=== PATIENT | male | born 1930 | race Caucasian/White ===

== ENCOUNTER → 2016-07-17 | Outpatient (CLI) | payer MEDICARE, OTHER ==
[2016-07-17 10:17] LABS: CHLORIDE,CL 97 mmol/L (98-110); SODIUM,NA 141 mmol/L (136-146)
--- NOTE | 2016-07-17 10:32 | CR ---
EXAMINATION: Two-view chest (PA and Lateral views). HISTORY: Shortness of breath. FINDINGS: The trachea is midline. Heart is borderline in size. The cardiomediastinal silhouette is stable. Sma ll bilateral pleural effusions are noted, right greater than left. No pneumothorax. Osseous structures appear unremarkable. IMPRESSION: Small bilateral pleural effusions, right greater than left.
--- NOTE | 2016-07-17 12:37 | US ---
EXAMINATION: Ultrasound guided right thoracentesis. HISTORY: Right pleural effusion. Technique/findings: The procedure, benefits and risks were discussed with the patient. Following w kenyten informed consent was obtained from the patient, under ultrasound guidance and utilizing 1% li docaine as local anesthesia the right pleural effusion was accessed using a 5 Vietnamese one-step needle . Following access the catheter was placed into the effusion, 1000 cc of pleural effusion was drain ed. US images demonstrate near complete resolution of the pleural effusion. The patient tolerated t he procedure well. Post thoracentesis chest radiograph demonstrates a trace right pleural effusion. No pneumothorax. Sm all persistent left pleural effusion is noted. IMPRESSION: Successful ultrasound-guided right thoracentesis. Fluid was tea colored.
== END | disposition home or self-care (01) ==
LOC: MW.CHIM 09:12
PROVIDERS: ATTEND Internal Medicine
DX: R06.02 Shortness of breath (principal); J90 Pleural effusion, not elsewhere classified; I48.91 Unspecified atrial fibrillation; I11.0 Hypertensive heart disease with heart failure; I50.9 Heart failure, unspecified
CPT/HCPCS: 32555; 36415; 71010; 71010-26; 71020; 71020-26; 80053; 83880; 85025; 88104; 89050; 93005; 99215

== ENCOUNTER → 2016-09-05 | Outpatient (CLI) | payer MEDICARE, OTHER ==
[2016-09-05 13:39] LABS: CHLORIDE,CL 98 mmol/L (98-110); SODIUM,NA 141 mmol/L (136-146)
--- NOTE | 2016-09-05 14:10 | CR ---
EXAMINATION: Two-view chest (PA and Lateral views). HISTORY: Cough. FINDINGS: The trachea is midline. The cardiomediastinal silhouette is stable. There is bibasilar scarring vers us chronic pleural effusions noted bilaterally. No pneumothorax. No definite focal infiltrate. Osseous structures appear unremarkable. IMPRESSION: 1. Chronic pleural scarring within the lung bases versus chronic small bilateral pleural effusions.
== END ==
LOC: MW.CHIM 12:32
PROVIDERS: ATTEND Internal Medicine
DX: I11.0 Hypertensive heart disease with heart failure (principal); I50.9 Heart failure, unspecified; J90 Pleural effusion, not elsewhere classified; R05 Cough; I25.10 Atherosclerotic heart disease of native coronary artery without angina pectoris; I51.9 Heart disease, unspecified; I48.2 Chronic atrial fibrillation
CPT/HCPCS: 36415; 71020; 80048; 83880; 85025; G0463

== ENCOUNTER 2016-09-27 10:03 | Emergency (ER) | payer MEDICARE, OTHER ==
[2016-09-27] MEDS ORDERED: Sodium Chloride 0.9% 2.5 ML Syringe FLUSH PRN (10:20)
[2016-09-27] MEDS ORDERED: Sodium Chloride 0.9% 10 ML Syringe FLUSH PRN (10:20)
--- NOTE | 2016-09-27 10:39 | EDM.PDOC ---
ED HISTORY OF PRESENT ILLNESS - General Chief Complaint: Respiratory Problem Stated Complaint: OXYGEN NEEDED Time Seen by Provider: 09/27/16 10:14 Source of Information: Reports: Patient, Family History Limitations: Reports: No limitations - History of Present Illness INITIAL COMMENTS - FREE TEXT/NARRATIVE: HISTORY AND PHYSICAL: [An 85-year-old man presents with shortness of breath for the last 3 days] History of Present Illness: [3 days ago experienced shortness of breath he does have oxygen on at home and has been running 100% denies any trauma or illness However states he has had increased mucous production] Review of Systems: As per history of present illness and below otherwise all systems reviewed and negative. Past medical history: As per history of present illness and as reviewed below otherwise noncontributory. Surgical history: As per history of present illness and as reviewed below otherwise noncontributory. Social history: No reported history of drug or alcohol abuse. Family history: As per history of present illness and as reviewed below otherwise noncontributory. Physical exam: Alert and oriented gentleman answering questions appropriately, is at bedside. HEENT: Atraumatic, normocehpalic, pupils reactive, negative for conjunctival pallor or scleral icterus, mucous membranes moist, throat clear, neck supple, nontender, trachea midline. Lungs: Clear to auscultation, breath sounds equal bilaterally, chest non tender. Breath sounds are diminished on the right. Heart: S1S2, regular, negative for clicks, rubs, or JVD. Abdomen: Soft, nondistended, mild tenderness with palpation to the lower right rib cage splenmegaly. Negative for costovertebral tenderness. Pelvis: Stable nontender. Genitourinary: Deferred. Rectal: Deferred Extremities: Atraumatic, negative for cords or calf pain. Neurovascular unremarkable. Neuro: Awake, alert, oriented. Cranial nerves II through XII unremarkable. Cerebellum unremarkable. Motor and sensory unremarkable throughout. Exam nonfocal. Discussed case with Dr. Ruvalcaba who is in agreement to recommend a course of action should patient worsen in symptoms he'll need to be reevaluated with possible removal of the fluid Diagnostics: [ CBC CMP CXR EKG troponin blood cultures x2 UA and culture] Therapeutics: [O2/B. albuterol RT treatment Kayexalate 15 mg po] Impression: [] Right Pleural effusion moderate sized Hyperkalemia Plan: [The patient was sent home See Dr. Frederick next week If symptoms worsen return to the emergency room for further treatment] Definitive disposition and diagnosis as appropriate pending reevaluation and review of above. Timing/Duration: Reports: Day(s): (3) Severity: moderate Location, General: Reports: chest Quality: Reports: Same as previous episode (As per) - Related Data Allergies/ADRs: Allergies Allergy/AdvReac Type Severity Reaction Status Date / Time aspirin Allergy Cannot Verified 09/27/16 10:12 Remember Dairy Products Allergy Other Verified 09/27/16 10:12 iodine Allergy Cannot Verified 09/27/16 10:12 Remember propoxyphene HCl Allergy Other Verified 09/27/16 10:12 [From [place]] wheat Allergy Other Verified 09/27/16 10:12 Home Meds: Home Meds Nitroglycerin [Nitrostat] 0.4 mg SL ASDIRECTED PRN 11/17/15 [History] Losartan [Cozaar] 50 mg PO DAILY #30 tablet 06/10/16 [Rx] Metoprolol Tartrate [Lopressor] 75 mg PO BID #30 tablet 06/10/16 [Rx] Amoxicillin [IMW: Amoxicillin] 500 mg PO .THREE TIMES DAILY #30 bottle 09/27/16 [Rx] Past Medical History HEENT History: Reports: Hard of hearing, Impaired vision Cardiovascular History: Reports: Afib, Hypertension, NE Respiratory History: Reports: COPD Gastrointestinal History: Reports: Diverticulosis Genitourinary History: Reports: None Musculoskeletal History: Reports: Back pain, chronic Neurological History: Reports: None Psychiatric History: Reports: None Endocrine/Metabolic History: Reports: None Hematologic History: Reports: None Oncologic (Cancer) History: Reports: Other (see below) Other Oncologic History: skin Dermatologic History: Reports: None - Infectious Disease History Infectious Disease History: Reports: Rheumatic Fever - Past Surgical History HEENT Surgical History: Reports: None Cardiovascular Surgical History: Reports: None GI Surgical History: Reports: Colonoscopy Neurological Surgical History: Reports: Other (see below) Other Neurological Surgeries/Procedures: Surgery in 2003 to repair broken neck - History Comment History Comment: Rheumatic fever Social & Family History - Family History Family Medical History: Noncontributory HEENT: Reports: Other (see below) Other HEENT Family History: "sinus problems" Cardiac: Reports: NE Respiratory: Reports: Other (see below) Other Respiratory Family Hisory: emphysema GI: Reports: Other (see below) Other GI Family History: Dad had "stomach troubles" OBGYN: Reports: Neurological: Reports: CVA Oncologic: Reports: Skin - Tobacco Use Smoking Status *Q: Never Smoker Second Hand Smoke Exposure: No - Caffeine Use Caffeine Use: Reports: None - Recreational Drug Use Recreational Drug Use: No - Living Situation & Occupation Living situation: Reports: Occupation: employed ([employer]) ED ROS GENERAL - Review of Systems Review Of Systems: ROS reveals no pertinent complaints other than HPI. ED EXAM, GENERAL - Physical Exam Exam: See Below (see dictation) EKG INTERPRETATION Rhythm: a-fib Rate (beats/min): 89 Course - Vital Signs Last Recorded V/S: Last Vital Signs Temp 36.7 C 09/27/16 10:14 Pulse 93 09/27/16 13:00 Resp 16 09/27/16 13:00 BP 120/59 L 09/27/16 13:00 Pulse Ox 96 09/27/16 13:00 - Orders/Labs/Meds Orders: Active Orders 24 hr Category Date Time Status Cardiac Monitoring [RC] . DIRECTED Care 09/27/16 10:20 Active EKG Documentation Completion [RC] STAT Care 09/27/16 10:20 Active Oxygen Therapy, ED [RC] ASDIRECTED Care 09/27/16 10:20 Active RT Aerosol Therapy [RC] ASDIRECTED Care 09/27/16 10:40 Active Chest 2V [CR] Stat Exams 09/27/16 10:21 Taken CULTURE BLOOD [BC] Stat Lab 09/27/16 10:52 Results CULTURE BLOOD [BC] Stat Lab 09/27/16 11:12 Results Sodium Chloride 0.9% [Saline Flush] Med 09/27/16 10:20 Active 10 ml FLUSH ASDIRECTED PRN Sodium Chloride 0.9% [Saline Flush] Med 09/27/16 10:20 Active 2.5 ml FLUSH ASDIRECTED PRN Blood Culture x2 Reflex Set [OM.PC] Stat Oth 09/27/16 10:21 Ordered Saline Lock Insert [OM.PC] Stat Oth 09/27/16 10:20 Ordered Medication Orders Sodium Chloride (Saline Flush) 10 ml FLUSH ASDIRECTED PRN PRN Reason: Keep Vein Open Last Admin: 09/27/16 10:55 Dose: 10 ml Sodium Chloride (Saline Flush) 2.5 ml FLUSH ASDIRECTED PRN PRN Reason: Keep Vein Open Last Admin: 09/27/16 10:55 Dose: 2.5 ml Labs: Laboratory Tests 09/27/16 09/27/16 09/27/16 Range/Units 10:37 10:37 10:37 WBC 11.90 H (4.0-11.0) K/uL RBC 4.30 L (4.50-5.90) M/uL Hgb 13.2 (13.0-17.0) g/dL Hct 41.9 (38.0-50.0) % MCV 97.4 (80.0-98.0) fL MCH 30.7 (27.0-32.0) pg MCHC 31.5 (31.0-37.0) g/dL RDW Std Deviation 53.1 (28.0-62.0) fl RDW Coeff of Leandro 15 (11.0-15.0) % Plt Count 193 (150-400) K/uL MPV 12.50 H (7.40-12.00) fL Neut % (Auto) 85.3 H (48.0-80.0) % Lymph % (Auto) 4.5 L (16.0-40.0) % [place] % (Auto) 9.7 (0.0-15.0) % Eos % (Auto) 0.2 (0.0-7.0) % Baso % (Auto) 0.3 (0.0-1.5) % Neut # (Auto) 10.2 H (1.4-5.7) K/uL Lymph # (Auto) 0.5 L (0.6-2.4) K/uL [place] # (Auto) 1.2 H (0.0-0.8) K/uL Eos # (Auto) 0.0 (0.0-0.7) K/uL Baso # (Auto) 0.0 (0.0-0.1) K/uL Nucleated RBC % 0.0 /100WBC Nucleated RBCs # 0 K/uL Lactate (0.20-2.00) mmol/L Sodium 140 (136-146) mmol/L Potassium 5.3 H (3.5-5.1) mmol/L Chloride 100 (98-110) mmol/L Carbon Dioxide 31 (21-31) mmol/L BUN 16 (6.0-23.0) mg/dL Creatinine 0.9 (0.6-1.5) mg/dL Est Cr Clr Drug Dosing 50.96 mL/min Estimated GFR (MDRD) > 60.0 ml/min Glucose 123 H (60-110) mg/dL Calcium 9.1 (8.8-10.8) mg/dL Total Bilirubin 1.3 (0.1-1.5) mg/dL AST 14 (5-40) IU/L ALT 11 (8-54) IU/L Alkaline Phosphatase 95 (40-150) Troponin I < 0.10 (0.0-0.29) NG/ML Total Protein 7.3 (6.0-8.0) g/dL Albumin 3.6 (3.4-4.8) g/dL Globulin 3.7 H (2.0-3.5) g/dL Albumin/Globulin Ratio 1.0 L (1.3-2.8) Urine Color Urine Appearance Urine pH (5.0-8.0) Ur Specific [place] (1.001-1.035) Urine Protein (NEGATIVE) mg/dL Urine Glucose (UA) (NEGATIVE) mg/dL Urine Ketones (NEGATIVE) mg/dL Urine Occult Blood (NEGATIVE) Urine Nitrite (NEGATIVE) Urine Bilirubin (NEGATIVE) Urine Urobilinogen (<2.0) EU/dL Ur Leukocyte Esterase (NEGATIVE) Urine RBC (0-2/HPF) Urine WBC (0-5/HPF) Ur Epithelial Cells (NONE-FEW) Amorphous Sediment (NEGATIVE) Urine Bacteria (NEGATIVE) Urine Mucus (NONE-MOD) 09/27/16 09/27/16 Range/Units 12:00 12:50 WBC (4.0-11.0) K/uL RBC (4.50-5.90) M/uL Hgb (13.0-17.0) g/dL Hct (38.0-50.0) % MCV (80.0-98.0) fL MCH (27.0-32.0) pg MCHC (31.0-37.0) g/dL RDW Std Deviation (28.0-62.0) fl RDW Coeff of Leandro (11.0-15.0) % Plt Count (150-400) K/uL MPV (7.40-12.00) fL Neut % (Auto) (48.0-80.0) % Lymph % (Auto) (16.0-40.0) % [place] % (Auto) (0.0-15.0) % Eos % (Auto) (0.0-7.0) % Baso % (Auto) (0.0-1.5) % Neut # (Auto) (1.4-5.7) K/uL Lymph # (Auto) (0.6-2.4) K/uL [place] # (Auto) (0.0-0.8) K/uL Eos # (Auto) (0.0-0.7) K/uL Baso # (Auto) (0.0-0.1) K/uL Nucleated RBC % /100WBC Nucleated RBCs # K/uL Lactate 2.0 (0.20-2.00) mmol/L Sodium (136-146) mmol/L Potassium (3.5-5.1) mmol/L Chloride (98-110) mmol/L Carbon Dioxide (21-31) mmol/L BUN (6.0-23.0) mg/dL Creatinine (0.6-1.5) mg/dL Est Cr Clr Drug Dosing mL/min Estimated GFR (MDRD) ml/min Glucose (60-110) mg/dL Calcium (8.8-10.8) mg/dL Total Bilirubin (0.1-1.5) mg/dL AST (5-40) IU/L ALT (8-54) IU/L Alkaline Phosphatase (40-150) Troponin I (0.0-0.29) NG/ML Total Protein (6.0-8.0) g/dL Albumin (3.4-4.8) g/dL Globulin (2.0-3.5) g/dL Albumin/Globulin Ratio (1.3-2.8) Urine Color DARK YELLOW Urine Appearance SLT CLOUDY Urine pH 5.5 (5.0-8.0) Ur Specific [place] >= 1.030 (1.001-1.035) Urine Protein 30 (NEGATIVE) mg/dL Urine Glucose (UA) NEGATIVE (NEGATIVE) mg/dL Urine Ketones NEGATIVE (NEGATIVE) mg/dL Urine Occult Blood NEGATIVE (NEGATIVE) Urine Nitrite NEGATIVE (NEGATIVE) Urine Bilirubin SMALL H (NEGATIVE) Urine Urobilinogen 0.2 (<2.0) EU/dL Ur Leukocyte Esterase NEGATIVE (NEGATIVE) Urine RBC 0-2 (0-2/HPF) Urine WBC 0-2 (0-5/HPF) Ur Epithelial Cells FEW (NONE-FEW) Amorphous Sediment LIGHT (NEGATIVE) Urine Bacteria FEW (NEGATIVE) Urine Mucus LIGHT (NONE-MOD) Meds: Medications Generic Name Dose Route Start Last Admin Trade Name Freq PRN Reason Stop Dose Admin Sodium Chloride 10 ml 09/27/16 10:20 09/27/16 10:55 Saline Flush FLUSH 10 ml ASDIRECTED PRN Administration Keep Vein Open Sodium Chloride 2.5 ml 09/27/16 10:20 09/27/16 10:55 Saline Flush FLUSH 2.5 ml ASDIRECTED PRN Administration Keep Vein Open Discontinued Medications Generic Name Dose Route Start Last Admin Trade Name Freq PRN Reason Stop Dose Admin Albuterol 2.5 mg 09/27/16 10:40 09/27/16 11:01 Proventil Neb Soln NEB 09/27/16 10:41 2.5 mg ONETIME ONE Administration Sodium Polystyrene Sulfonate 15 gm 09/27/16 13:26 09/27/16 13:37 Kayexalate PO 09/27/16 13:27 15 gm ONETIME ONE Administration Departure - Departure Time of Disposition: 13:51 Disposition: Home, Self-Care 01 Condition: good Clinical Impression: Pleural effusion Prescriptions: Amoxicillin [IMW: Amoxicillin] 500 mg PO .THREE TIMES DAILY #30 bottle Forms: ED Department Discharge - My Orders Last 24 Hours: My Active Orders 09/27/16 10:20 Cardiac Monitoring [RC] . DIRECTED EKG Documentation Completion [RC] STAT Oxygen Therapy, ED [RC] ASDIRECTED Sodium Chloride 0.9% [Saline Flush] 10 ml FLUSH ASDIRECTED PRN Sodium Chloride 0.9% [Saline Flush] 2.5 ml FLUSH ASDIRECTED PRN Saline Lock Insert [OM.PC] Stat 09/27/16 10:21 Chest 2V [CR] Stat Blood Culture x2 Reflex Set [OM.PC] Stat 09/27/16 10:40 RT Aerosol Therapy [RC] ASDIRECTED 09/27/16 10:52 CULTURE BLOOD [BC] Stat 09/27/16 11:12 CULTURE BLOOD [BC] Stat - Assessment/Plan Last 24 Hours: My Active Orders 09/27/16 10:20 Cardiac Monitoring [RC] . DIRECTED EKG Documentation Completion [RC] STAT Oxygen Therapy, ED [RC] ASDIRECTED Sodium Chloride 0.9% [Saline Flush] 10 ml FLUSH ASDIRECTED PRN Sodium Chloride 0.9% [Saline Flush] 2.5 ml FLUSH ASDIRECTED PRN Saline Lock Insert [OM.PC] Stat 09/27/16 10:21 Chest 2V [CR] Stat Blood Culture x2 Reflex Set [OM.PC] Stat 09/27/16 10:40 RT Aerosol Therapy [RC] ASDIRECTED 09/27/16 10:52 CULTURE BLOOD [BC] Stat 09/27/16 11:12 CULTURE BLOOD [BC] Stat
[2016-09-27] MEDS ORDERED: Albuterol 0.083% 2.5 MG/3 ML Neb Soln NEB ONE (10:40)
[2016-09-27 11:32] LABS: CHLORIDE,CL 100 mmol/L (98-110); SODIUM,NA 140 mmol/L (136-146)
[2016-09-27] MEDS ORDERED: Sodium Polystyrene Sulfonate 15 GM/60 ML Susp 60 ML Bot PO ONE (13:26)
[2016-09-27 14:21] VITALS: BP 122/63
--- NOTE | 2016-09-27 17:25 | CR ---
EXAM DATE: 09/27/16 PATIENT'S AGE: 85 Patient: BRYAN FISHER Facility: [place], [place] Site . Site : [id number] Study: XRay Chest [id number]/26/2017 11:38:04 AM Ordering Physician: Doctor Sepulveda Final Report: INDICATION: Weakness. Shortness of breath. COMPARISON: 09/05/2016. FINDINGS/IMPRESSION: Moderate-sized right pleural effusion, increased compared to the previous exam. Small left pleural effusion, stable to minimally increased. Bibasilar compressive atelectasis and / or consolidation is also increased, especially in the left lower lobe retrocardiac area. The heart is now mostly obscured but may be mildly enlarged. There is mild pulmonary vascular congestion. Included bones appear normal for age. Dictated by Calvin Morse MD @ 09/27/2016 12:02:50 PM Dictated by: Calvin Morse MD @ 09/27/2016 12:03:33 (Electronic Signature) Report Signed by Proxy and Original Signed Document filed in the Medical Record. [facility]
== END 2016-09-27 14:17 | disposition home or self-care (01) ==
LOC: MW.ED 10:03
DX: J90 Pleural effusion, not elsewhere classified (principal); E87.5 Hyperkalemia; I48.91 Unspecified atrial fibrillation; I10 Essential (primary) hypertension; I25.2 Old myocardial infarction; J44.9 Chronic obstructive pulmonary disease, unspecified; Z79.899 Other long term (current) drug therapy; Z91.011 Allergy to milk products; Z88.6 Allergy status to analgesic agent
CPT/HCPCS: 36415; 71020; 80053; 81001; 83605; 84484; 85025; 87040; 87070; 87205; 93005; 94664; 99285; A9270; 99283

== ENCOUNTER → 2016-10-02 | Outpatient (CLI) | payer MEDICARE, OTHER ==
--- NOTE | 2016-10-02 15:27 | CR ---
EXAMINATION: Two-view chest (PA and Lateral views). HISTORY: Pleural effusion. FINDINGS: The trachea is midline. The heart is normal in size. There is a small to moderate right and a small left pleural effusion. Adjacent atelectasis is noted. Osseous structures appear osteopenic. IMPRESSION: Small to moderate right and small left pleural effusions.
== END ==
LOC: MW.CHIM 14:33
PROVIDERS: ATTEND Internal Medicine
DX: J90 Pleural effusion, not elsewhere classified (principal); I48.91 Unspecified atrial fibrillation; I10 Essential (primary) hypertension; R09.02 Hypoxemia
CPT/HCPCS: 71020; 71020-26; 99214

== ENCOUNTER → 2016-10-04 | Outpatient (CLI) | payer MEDICARE, OTHER ==
--- NOTE | 2016-10-04 12:00 | US ---
EXAMINATION: Ultrasound guided left thoracentesis. HISTORY: Right pleural effusion. Technique/findings: The procedure, benefits and risks were discussed with the patient. Following w ritten informed consent was obtained from the patient, under ultrasound guidance and utilizing 1% li docaine as local anesthesia the right pleural effusion was accessed using a 5 Lithuanian one-step needle . Following access the catheter was placed into the effusion, 1000 cc of pleural effusion was drain ed. US images demonstrates a small residual pleural effusion post thoracentesis. The patient tolera kiara the procedure well. Post thoracentesis chest radiograph demonstrates small residual right pleural effusion and a small l eft pleural effusion. No pneumothorax identified. IMPRESSION: Successful ultrasound-guided right thoracentesis. Straw-colored fluid was collected.
== END ==
LOC: MW.US 08:09
PROVIDERS: ATTEND Internal Medicine
DX: J90 Pleural effusion, not elsewhere classified (principal); Z98.890 Other specified postprocedural states
CPT/HCPCS: 32555; 71010; 71010-26

== ENCOUNTER 2016-11-05 15:01 | Inpatient (IN) | payer MEDICARE, OTHER ==
[2016-11-05] MEDS ORDERED: Sodium Chloride 0.9% 10 ML Syringe FLUSH PRN (15:14)
[2016-11-05] MEDS ORDERED: Sodium Chloride 0.9% 2.5 ML Syringe FLUSH PRN (15:14)
--- NOTE | 2016-11-05 15:32 | EDM.PDOC ---
ED HPI GENERAL MEDICAL PROBLEM - General Chief Complaint: Respiratory Problem Stated Complaint: SHORTNESS OF BREATH Time Seen by Provider: 11/05/16 15:03 Source of Information: Reports: Patient History Limitations: Reports: No Limitations - History of Present Illness INITIAL COMMENTS - FREE TEXT/NARRATIVE: Presents via EMS. The patient's and his son accompanies him. They report that the patient has a history of COPD and is oxygen dependent at home. Approximately 12 months ago he had a episode of pneumonia and since that time he has had to have intermittent thoracentesis. He is due for thoracentesis tomorrow to interventional radiology here at [facility]. His primary provider is Dr. Barker. He also has a history of valvular heart disease and atrial fibrillation. The patient states that he has been experiencing increasing shortness of breath over the last couple days and today he was not able to keep his oxygen saturations up on his nasal cannula at home. His usual activity is sitting and staring out the window all day and he has not tried to exert himself. - Related Data Allergies Allergy/AdvReac Type Severity Reaction Status Date / Time aspirin Allergy Cannot Verified 09/27/16 10:12 Remember Dairy Products Allergy Other Verified 11/05/16 15:06 iodine Allergy Cannot Verified 11/05/16 15:06 Remember propoxyphene HCl Allergy Other Verified 11/05/16 15:20 [From Darvon] wheat Allergy Other Verified 11/05/16 15:06 Home Meds: Home Meds Nitroglycerin [Nitrostat] 0.4 mg SL ASDIRECTED PRN 11/17/15 [History] Metoprolol Tartrate [Lopressor] 75 mg PO BID #30 tablet 06/10/16 [Rx] Furosemide [Lasix] 20 mg PO DAILY 11/05/16 [History] Past Medical History HEENT History: Reports: Hard of Hearing, Impaired Vision Cardiovascular History: Reports: Afib, Hypertension, PA Respiratory History: Reports: COPD Gastrointestinal History: Reports: Diverticulosis Genitourinary History: Reports: None Musculoskeletal History: Reports: Back Pain, Chronic Neurological History: Reports: None Psychiatric History: Reports: None Endocrine/Metabolic History: Reports: None Hematologic History: Reports: None Oncologic (Cancer) History: Reports: Other (See Below) Other Oncologic History: skin Dermatologic History: Reports: None - Infectious Disease History Infectious Disease History: Reports: Rheumatic Fever - Past Surgical History Cardiovascular Surgical History: Reports: None GI Surgical History: Reports: Colonoscopy Neurological Surgical History: Reports: Other (See Below) Musculoskeletal Surgical History: Reports: Other (See Below) - History Comment History Comment: Rheumatic fever Social & Family History - Family History Family Medical History: Noncontributory HEENT: Reports: Other (See Below) Other HEENT Family History: "sinus problems" Cardiac: Reports: PA Respiratory: Reports: Other (See Below) Other Respiratory Family Hisory: emphysema GI: Reports: Other (See Below) Other GI Family History: Dad had "stomach troubles" OBGYN: Reports: Neurological: Reports: CVA Oncologic: Reports: Skin - Tobacco Use Smoking Status *Q: Never Smoker Second Hand Smoke Exposure: No - Caffeine Use Caffeine Use: Reports: Coffee Caffeine Use Comment: once a week - Recreational Drug Use Recreational Drug Use: No - Living Situation & Occupation Living situation: Reports: Occupation: Employed ED ROS GENERAL - Review of Systems Review Of Systems: ROS reveals no pertinent complaints other than HPI. ED EXAM, GENERAL - Physical Exam Exam: See Below Exam Limited By: No Limitations General Appearance: Alert, No Apparent Distress Ears: Normal External Exam Nose: Normal Inspection Throat/Mouth: Normal Inspection Head: Atraumatic, Normocephalic Neck: Normal Inspection Respiratory/Chest: No Respiratory Distress, Normal Breath Sounds (Left), Other ( Unable to auscultate left) Cardiovascular: Normal Peripheral Pulses, Irregularly Irregular GI/Abdominal: Soft Back Exam: Normal Inspection Extremities: Normal Inspection, Pedal Edema (Mild left) Neurological: Alert, Oriented, Normal Cognition Psychiatric: Normal Affect, Normal Mood Skin Exam: Warm, Dry, Intact, Normal Color, No Rash Lymphatic: No Adenopathy Course - Vital Signs Last Recorded V/S: Last Vital Signs Temp 36.2 C 11/05/16 20:00 Pulse 115 H 11/05/16 20:00 Resp 19 11/05/16 20:00 BP 99/54 L 11/05/16 20:00 Pulse Ox 91 L 11/05/16 20:00 - Orders/Labs/Meds Labs: Laboratory Tests 11/05/16 11/05/16 11/05/16 Range/Units 15:23 15:23 15:23 WBC 9.10 (4.0-11.0) K/uL RBC 4.52 (4.50-5.90) M/uL Hgb 13.9 (13.0-17.0) g/dL Hct 45.1 (38.0-50.0) % MCV 99.8 H (80.0-98.0) fL MCH 30.8 (27.0-32.0) pg MCHC 30.8 L (31.0-37.0) g/dL RDW Std Deviation 53.0 (28.0-62.0) fl RDW Coeff of Leandro 14 (11.0-15.0) % Plt Count 146 L (150-400) K/uL MPV 12.10 H (7.40-12.00) fL Neut % (Auto) 82.2 H (48.0-80.0) % Lymph % (Auto) 8.1 L (16.0-40.0) % [place] % (Auto) 9.2 (0.0-15.0) % Eos % (Auto) 0.1 (0.0-7.0) % Baso % (Auto) 0.4 (0.0-1.5) % Neut # (Auto) 7.5 H (1.4-5.7) K/uL Lymph # (Auto) 0.7 (0.6-2.4) K/uL [place] # (Auto) 0.8 (0.0-0.8) K/uL Eos # (Auto) 0.0 (0.0-0.7) K/uL Baso # (Auto) 0.0 (0.0-0.1) K/uL Nucleated RBC % 0.0 /100WBC Nucleated RBCs # 0 K/uL ABG pH (7.35-7.45) ABG pCO2 (35-45) mmHG ABG pO2 (75-100) mmHG ABG HCO3 (22-26) mEq/L ABG Total CO2 ABG Base Excess (-2.0-2.0) Sodium 142 (136-146) mmol/L Potassium 4.8 (3.5-5.1) mmol/L Chloride 93 L (98-110) mmol/L Carbon Dioxide 40 H (21-31) mmol/L BUN 17 (6.0-23.0) mg/dL Creatinine 1.0 (0.6-1.5) mg/dL Est Cr Clr Drug Dosing 47.47 mL/min Estimated GFR (MDRD) > 60.0 ml/min Glucose 158 H (60-110) mg/dL Calcium 9.1 (8.8-10.8) mg/dL Total Bilirubin 1.2 (0.1-1.5) mg/dL AST 18 (5-40) IU/L ALT 13 (8-54) IU/L Alkaline Phosphatase 86 (40-150) B-Natriuretic Peptide 1203 H (<100) PG/ML Total Protein 7.2 (6.0-8.0) g/dL Albumin 3.8 (3.4-4.8) g/dL Globulin 3.4 (2.0-3.5) g/dL Albumin/Globulin Ratio 1.1 L (1.3-2.8) 11/05/16 Range/Units 16:20 WBC (4.0-11.0) K/uL RBC (4.50-5.90) M/uL Hgb (13.0-17.0) g/dL Hct (38.0-50.0) % MCV (80.0-98.0) fL MCH (27.0-32.0) pg MCHC (31.0-37.0) g/dL RDW Std Deviation (28.0-62.0) fl RDW Coeff of Leandro (11.0-15.0) % Plt Count (150-400) K/uL MPV (7.40-12.00) fL Neut % (Auto) (48.0-80.0) % Lymph % (Auto) (16.0-40.0) % [place] % (Auto) (0.0-15.0) % Eos % (Auto) (0.0-7.0) % Baso % (Auto) (0.0-1.5) % Neut # (Auto) (1.4-5.7) K/uL Lymph # (Auto) (0.6-2.4) K/uL [place] # (Auto) (0.0-0.8) K/uL Eos # (Auto) (0.0-0.7) K/uL Baso # (Auto) (0.0-0.1) K/uL Nucleated RBC % /100WBC Nucleated RBCs # K/uL ABG pH 7.244 L (7.35-7.45) ABG pCO2 100 H (35-45) mmHG ABG pO2 75 (75-100) mmHG ABG HCO3 43 H (22-26) mEq/L ABG Total CO2 40.4 ABG Base Excess 13.7 H (-2.0-2.0) Sodium (136-146) mmol/L Potassium (3.5-5.1) mmol/L Chloride (98-110) mmol/L Carbon Dioxide (21-31) mmol/L BUN (6.0-23.0) mg/dL Creatinine (0.6-1.5) mg/dL Est Cr Clr Drug Dosing mL/min Estimated GFR (MDRD) ml/min Glucose (60-110) mg/dL Calcium (8.8-10.8) mg/dL Total Bilirubin (0.1-1.5) mg/dL AST (5-40) IU/L ALT (8-54) IU/L Alkaline Phosphatase (40-150) B-Natriuretic Peptide (<100) PG/ML Total Protein (6.0-8.0) g/dL Albumin (3.4-4.8) g/dL Globulin (2.0-3.5) g/dL Albumin/Globulin Ratio (1.3-2.8) Meds: Medications Discontinued Medications Generic Name Dose Route Start Last Admin Trade Name Freq PRN Reason Stop Dose Admin Acetaminophen 650 mg 11/05/16 17:23 Tylenol PO Q4H PRN Pain (Mild 1-3)/fever Docusate Sodium 100 mg 11/05/16 17:23 Colace PO BID PRN Constipation Furosemide 20 mg 11/05/16 16:03 11/05/16 16:09 Lasix IVPUSH 11/05/16 16:04 20 mg NOW ONE Administration Furosemide 20 mg 11/06/16 09:00 Lasix PO DAILY [facility] Sodium Chloride 1,000 mls @ 75 mls/hr 11/05/16 17:30 Normal Saline IV ASDIRECTED [facility] Lidocaine/Epinephrine 20 ml 11/05/16 19:26 11/05/16 21:42 Xylocaine 1% With Epinephrine 1:100,000 INJECT 11/05/16 19:27 Not Given ONETIME ONE Metoprolol Tartrate 75 mg 11/05/16 21:00 Lopressor PO BID MARIELA Morphine Sulfate 2 mg 11/05/16 17:23 Morphine IVPUSH 11/06/16 17:27 Q2H PRN Pain (severe 7-10) Morphine Sulfate 1 - 10 mg 11/05/16 19:18 11/05/16 21:42 Morphine IVPUSH 11/05/16 19:19 Not Given ONETIME ONE Morphine Sulfate Confirm 11/05/16 19:21 Morphine Administered 11/05/16 19:22 Dose 10 mg .ROUTE .STK-MED ONE Ondansetron HCl 4 mg 11/05/16 17:23 Zofran Odt PO Q6H PRN nausea, able to take PO Oxycodone HCl 5 mg 11/05/16 17:23 Oxycodone PO Q4H PRN Pain (moderate 4-6) Sodium Chloride 10 ml 11/05/16 15:14 Saline Flush FLUSH ASDIRECTED PRN Keep Vein Open Sodium Chloride 2.5 ml 11/05/16 15:14 Saline Flush FLUSH ASDIRECTED PRN Keep Vein Open Temazepam 15 mg 11/05/16 17:23 Restoril PO BEDTIME PRN Sleep - Re-Assessments/Exams Free Text/Narrative Re-Assessment/Exam: 11/05/16 15:34 Discussion with the patient, his and his son. The patient states that his wishes are that if his heart were to stop he does not want any CPR, defibrillation or intubation. In he needs to be intubated to stabilize his respiratory status he is open to that. He does not however want to be transferred to any other facility. Departure - Departure Time of Disposition: 20:58 Disposition: Admitted As Inpatient 67 Condition: Serious Clinical Impression: Pleural effusion - Discharge Information
[2016-11-05 16:03] LABS: CHLORIDE,CL 93 mmol/L (98-110); SODIUM,NA 142 mmol/L (136-146)
[2016-11-05] MEDS ORDERED: Furosemide 40 MG/4 ML VIAL IVPUSH ONE (16:03)
[2016-11-05] MEDS ORDERED: Docusate Sodium 100 MG Cap PO PRN (17:23)
[2016-11-05] MEDS ORDERED: oxyCODONE 5 MG Tab PO PRN (17:23)
[2016-11-05] MEDS ORDERED: Ondansetron 4 MG Tab.DIS PO PRN (17:23)
[2016-11-05] MEDS ORDERED: Morphine 2 MG/ML Syringe IVPUSH PRN (17:23)
[2016-11-05] MEDS ORDERED: Temazepam 15 MG Cap PO PRN (17:23)
[2016-11-05] MEDS ORDERED: Acetaminophen 325 MG Tab PO PRN (17:23)
[2016-11-05] MEDS ORDERED: Sodium Chloride 0.9% 1,000 ML IV SCH (17:30)
--- NOTE | 2016-11-05 18:26 | PCM.HP ---
H&P History of Present Illness - General Date of Service: 11/05/16 Admit Problem/Dx: Admission Diagnosis/Problem Admission Diagnosis/Problem Respiratory failure Source of Information: Patient, Family History Limitations: Reports: Respiratory Distress - History of Present Illness Initial Comments - Free Text/Narative: Nov 05, 2016: The patient is an 86-year-old gentleman who is presented to the emergency department primarily with a complaint of shortness of breath. The patient had been previously evaluated by his primary care physician on Nov 02, 2016 and was recommended to have therapeutic thoracentesis tomorrow. The patient has been oxygen dependent and he says that his breathing got much worse and had prompted his visit to the emergency department. Also, the patient has not been able to keep his oxygen saturations up via nasal cannula. On presentation to the emergency department while on 5 L of oxygen via nasal cannula the patient's pulse oximetry was at 84%. The patient also had been previously diagnosed with pneumonia approximately 12 months ago and since that time he has been in fairly steady decline. The patient also had a thoracentesis in July and also in October and the frequency between the necessity for the thoracentesis is has been decreasing. Previously there were no cells meeting criteria for malignancy and the fluid was a transudate. Chest x-ray obtained to the emergency department essentially shows complete white out of his right lung field. Patient also has denied fever or chills. He's had a cough of productive sputum as well. He has denied any chest pain. The patient is fairly adamant about not being transferred to tertiary care center. The patient is also at his request a DO NOT INTUBATE DO NOT RESUSCITATE. The patient also had been placed on BiPAP and he was simply unable to tolerate this secondary to claustrophobia. The patient has been in declining health over the past several months. He is also only taking metoprolol chronically. Onset of Symptoms: Reports: Gradual Duration of Symptoms: Reports: Day(s):, Getting Worse Location: Reports: Chest Severity: Moderate Improves with: Reports: Rest Worsens with: Reports: Movement Associated Symptoms: Reports: cough w sputum, Shortness of Breath, Weakness - Related Data Allergies/Adverse Reactions: Allergies Allergy/AdvReac Type Severity Reaction Status Date / Time aspirin Allergy Cannot Verified 09/27/16 10:12 Remember Dairy Products Allergy Other Verified 11/05/16 15:06 iodine Allergy Cannot Verified 11/05/16 15:06 Remember propoxyphene HCl Allergy Other Verified 11/05/16 15:20 [From Darvon] wheat Allergy Other Verified 11/05/16 15:06 Home Medications: Home Meds Nitroglycerin [Nitrostat] 0.4 mg SL ASDIRECTED PRN 11/17/15 [History] Metoprolol Tartrate [Lopressor] 75 mg PO BID #30 tablet 06/10/16 [Rx] Furosemide [Lasix] 20 mg PO DAILY 11/05/16 [History] Past Medical History HEENT History: Reports: Hard of Hearing, Impaired Vision Cardiovascular History: Reports: Afib, Hypertension, MS Respiratory History: Reports: COPD, Pneumothorax, SOB Gastrointestinal History: Reports: Diverticulosis Genitourinary History: Reports: None Musculoskeletal History: Reports: Back Pain, Chronic Neurological History: Reports: None Psychiatric History: Reports: None Endocrine/Metabolic History: Reports: None Hematologic History: Reports: None Oncologic (Cancer) History: Reports: Other (See Below) Other Oncologic History: skin Dermatologic History: Reports: None - Infectious Disease History Infectious Disease History: Reports: Rheumatic Fever - Past Surgical History Cardiovascular Surgical History: Reports: None GI Surgical History: Reports: Colonoscopy Neurological Surgical History: Reports: Other (See Below) Musculoskeletal Surgical History: Reports: Other (See Below) - History Comment History Comment: Rheumatic fever Social & Family History - Family History Family Medical History: Noncontributory HEENT: Reports: Other (See Below) Other HEENT Family History: "sinus problems" Cardiac: Reports: MS Respiratory: Reports: Other (See Below) Other Respiratory Family Hisory: emphysema GI: Reports: Other (See Below) Other GI Family History: Dad had "stomach troubles" OBGYN: Reports: Neurological: Reports: CVA Oncologic: Reports: Skin - Tobacco Use Smoking Status *Q: Never Smoker Second Hand Smoke Exposure: No - Caffeine Use Caffeine Use: Reports: Coffee Caffeine Use Comment: once a week - Recreational Drug Use Recreational Drug Use: No - Living Situation & Occupation Living situation: Reports: Occupation: Employed H&P Review of Systems - Review of Systems: Review Of Systems: See Below General: Reports: Weakness, Fatigue HEENT: Reports: No Symptoms, Hearing Changes (chronic) Pulmonary: Reports: Shortness of Breath, Cough, Sputum Cardiovascular: Reports: No Symptoms Gastrointestinal: Reports: No Symptoms Genitourinary: Reports: No Symptoms Musculoskeletal: Reports: No Symptoms Skin: Reports: No Symptoms Psychiatric: Reports: No Symptoms Neurological: Reports: No Symptoms Hematologic/Lymphatic: Reports: No Symptoms Immunologic: Reports: No Symptoms Exam - Exam Exam: See Below - Vital Signs Vital Signs: Last Vital Signs Temp 35.9 C 11/05/16 17:23 Pulse 126 H 11/05/16 17:23 Resp 28 H 11/05/16 17:23 BP 108/78 11/05/16 17:23 Pulse Ox 95 11/05/16 17:23 Weight: 62.142 kg - Exam Quality Assessment: Supplemental Oxygen General: Alert, Oriented, Cooperative, Mild Distress (no pain), Other (thin) HEENT: Conjunctiva Clear, EACs Clear, Nares Patent. No: Mucosa Moist & [place] ( dry) Neck: Supple, Trachea Midline Lungs: Decreased Breath Sounds (no sounds right lung field), Rales Cardiovascular: Irregular Rhythm Abdomen: Normal Bowel Sounds, Soft. No: Peritoneal Signs, Distention Back Exam: Decreased Range of Motion Extremities: Normal Inspection Skin: Warm, Dry Neurological: Cranial Nerves Intact Neuro Extensive - Mental Status: Alert, Oriented x3 Psychiatric: Alert, Normal Affect, Normal Mood - Patient Data Result Diagrams: 11/05/16 15:23 11/05/16 15:23 Imaging Impressions last 24 hrs: chest x-ray reviewed, marked elevation of right hemidiaphragm with collapse of right lung, awaiting radiologist over read *Q Meaningful Use (ADM) - VTE *Q VTE Criteria *Q: VTE Mechanical Contraindications *Q: At Risk for Falls - VTE Risk Assess *Q Each Risk Factor Represents 1 Point: Congestive Heart Failure, Less than 1 Month , Serious Lung Disease Including Pneumonia, Less than 1 Month Total Score 1 Point Risk Factors: 2 Each Risk Factor Represents 2 Points: Previous Malignancy Total Score 2 Point Risk Factors: 2 Each Risk Factor Represents 3 Points: Age 75 Years or Greater Total Score 3 Point Risk Factors: 3 - Stroke *Q Stroke Criteria *Q: - AMI *Q AMI Criteria *Q: Problem List Initiated/Reviewed/Updated: Yes Orders Last 24hrs: Active Orders 24 hr Category Date Time Status Patient Status [ADT] Routine ADT 11/05/16 17:23 Active Ambulate [RC] PER UNIT ROUTINE Care 11/05/16 17:25 Active Cardiac Monitoring [RC] CONTINUOUS Care 11/05/16 17:25 Active Intake and Output [RC] QSHIFT Care 11/05/16 17:25 Active Notify Provider Consults [RC] ASDIRECTED Care 11/05/16 17:28 Active Oxygen Therapy [RC] PRN Care 11/05/16 17:23 Active Up With Assistance [RC] ASDIRECTED Care 11/05/16 17:23 Active VTE/DVT Education [RC] PER UNIT ROUTINE Care 11/05/16 17:23 Active Vital Signs [RC] Q4H Care 11/05/16 17:23 Active Consult to Physician [CONS] Routine Cons 11/05/16 17:23 Active 2 Gram Sodium Diet [DIET] Diet 11/05/16 Breakfast Active Chest wo Cont [CT] Stat Exams 11/05/16 18:05 Ordered CBC WITH AUTO DIFF [HEME] AM Lab 11/06/16 05:11 Ordered COMPREHENSIVE METABOLIC PN,CMP [CHEM] AM Lab 11/06/16 05:11 Ordered MAGNESIUM [CHEM] AM Lab 11/06/16 05:11 Ordered PHOSPHORUS [CHEM] AM Lab 11/06/16 05:11 Ordered Acetaminophen [Tylenol] Med 11/05/16 17:23 Active 650 mg PO Q4H PRN Docusate Sodium [Colace] Med 11/05/16 17:23 Active 100 mg PO BID PRN Furosemide [Lasix] Med 11/06/16 09:00 Active 20 mg PO DAILY Metoprolol Tartrate [Lopressor] Med 11/05/16 21:00 Active 75 mg PO BID Morphine Med 11/05/16 17:23 Active 2 mg IVPUSH Q2H PRN Ondansetron [Zofran ODT] Med 11/05/16 17:23 Active 4 mg PO Q6H PRN Sodium Chloride 0.9% [Normal Saline] 1,000 ml Med 11/05/16 17:30 Active IV ASDIRECTED Temazepam [Restoril] Med 11/05/16 17:23 Active 15 mg PO BEDTIME PRN oxyCODONE Med 11/05/16 17:23 Active 5 mg PO Q4H PRN Resuscitation Status Routine Resus Stat 11/05/16 17:23 Ordered Medication Orders Acetaminophen (Tylenol) 650 mg PO Q4H PRN PRN Reason: Pain (Mild 1-3)/fever Docusate Sodium (Colace) 100 mg PO BID PRN PRN Reason: Constipation Furosemide (Lasix) 20 mg PO DAILY [facility] Sodium Chloride (Normal Saline) 1,000 mls @ 75 mls/hr IV ASDIRECTED MARIELA Metoprolol Tartrate (Lopressor) 75 mg PO BID MARIELA Morphine Sulfate (Morphine) 2 mg IVPUSH Q2H PRN PRN Reason: Pain (severe 7-10) Stop: 11/06/16 17:27 Ondansetron HCl (Zofran Odt) 4 mg PO Q6H PRN PRN Reason: nausea, able to take PO Oxycodone HCl (Oxycodone) 5 mg PO Q4H PRN PRN Reason: Pain (moderate 4-6) Sodium Chloride (Saline Flush) 10 ml FLUSH ASDIRECTED PRN PRN Reason: Keep Vein Open Sodium Chloride (Saline Flush) 2.5 ml FLUSH ASDIRECTED PRN PRN Reason: Keep Vein Open Temazepam (Restoril) 15 mg PO BEDTIME PRN PRN Reason: Sleep Assessment/Plan Comment:: I've been unable to update the patient's problem list for the history and physical see below paragraph for recommendations Nov 05, 2016: The patient is an 86-year-old gentleman who is it been admitted as an inpatient to ICU. The admission diagnosis is acute respiratory failure secondary to right lung collapse. There is no evidence of a tension pneumothorax as his left lung is intact. As the patient has been unable to tolerate the BiPAP I recommended that we continue with high flow oxygen by nasal cannula. The goal is to keep the patient's oxygen saturations greater than 92%. I've also consulted Dr. Ulloa with regards to possible thoracentesis and he is reported that this is likely secondary to a mucous plug in the patient's lung. The patient also has marked elevation of the right hemidiaphragm which would partially confirm lung collapse with a pleural effusion as well. A CT scan has been ordered of the patient's chest without contrast secondary to iodine allergy. I have discussed the case also with Dr. Costello, electronic ICU, will continue to monitor the patient. The patient's blood gas was also abnormal in that he was suffering from respiratory acidosis with a PaO2 2 of 76 and a PCO2 of 100. The patient himself says that he does not want to be intubated nor chest compressions initiated. He is on a DO NOT RESUSCITATE category. The patient is also shown mild decrease in his platelet count of 146,000. This will be monitored. The patient's BNP is at 1200 and this is been fairly consistent for the patient. I've elected to patient patient on low-dose maintenance fluid of normal saline at 50 mL per hour. Bronchoscopy services are not available here and the patient is not wanting to be flown out to a tertiary care center for further treatment. After discussion with the patient's family this may be subject to change. This will be dependent upon the patient's CT scan. I've also ordered analysis of any pleural fluid which might be removed to include flow cytometry and pathology review of the fluid for malignant cells.
[2016-11-05] MEDS ORDERED: Morphine 10 MG/ML Syringe IVPUSH ONE (19:18)
[2016-11-05] MEDS ORDERED: Morphine 10 MG/ML Syringe ONE (19:21)
[2016-11-05] MEDS ORDERED: Lidocaine 1% with EPINEPHrine 1:100,000 20 ML MDV INJECT ONE (19:26)
--- NOTE | 2016-11-05 19:49 | PCM.SN ---
- Free Text/Narrative Note: CT chest > radiologist called on the phone, small L apical pneumothorax, large amount of debris on R bronchus causing R lung collapsed, and R pleural effusion ; recommend bronchoscopy. report relayed to patient, family, and Dr. Valentin and Dr. Haywood; pt would benefit from transfer to tertiary care center for treatment; ALL in agreement. Clinically pt can be heard with gurgurling and atempted to clear his secretion. THanks for the consult and care of this pleasant gentleman.
[2016-11-05] MEDS ORDERED: Metoprolol Tartrate 25 MG Tab PO SCH (21:00)
--- NOTE | 2016-11-05 21:10 | PCM.DCSUM1 ---
Discharge Summary - Hospital Course Free Text/Narrative:: Radiology and Dr. Ulloa spoke. The recommendation was NOT to place a chest tube as there was not a sig pleural effusion on the right but rather a significant collapse of the right lung due to either a mass or mucous plug. Dr. Ulloa rec'd to family (and they agreed) that the patient should go to a higher level of care for a pulmonary consult and possibly bronchoscopy. The patient is agreeable to such a procedure, even if it means temporary mech ventilation. Also, CT showed small left side ptx. Suspect from bleb rupture. Not req CT. Brief History: see hpi - Discharge Data Discharge Date: 11/05/16 Discharge Disposition: DC/Tfer to Acute Hospital 02 Condition: Serious - Patient Summary/Data Consults: Consultations 11/05/16 17:23 Consult to Physician [CONS] Routine - Discharge Plan Home Medications: Home Meds Nitroglycerin [Nitrostat] 0.4 mg SL ASDIRECTED PRN 11/17/15 [History] Metoprolol Tartrate [Lopressor] 75 mg PO BID #30 tablet 06/10/16 [Rx] Furosemide [Lasix] 20 mg PO DAILY 11/05/16 [History] Forms: ED Department Discharge Referrals: Jake Barker MD [Primary Care Provider] - - General Info Date of Service: 11/05/16 Admission Dx/Problem (Free Text: Admission Diagnosis/Problem Admission Diagnosis/Problem Respiratory failure - Patient Data Vitals - Most Recent: Last Vital Signs Temp 35.9 C 11/05/16 17:23 Pulse 126 H 11/05/16 17:23 Resp 28 H 11/05/16 17:23 BP 108/78 11/05/16 17:23 Pulse Ox 95 11/05/16 17:23 Weight - Most Recent: 62.142 kg Med Orders - Current: Current Medications Acetaminophen (Tylenol) 650 mg PO Q4H PRN PRN Reason: Pain (Mild 1-3)/fever Docusate Sodium (Colace) 100 mg PO BID PRN PRN Reason: Constipation Furosemide (Lasix) 20 mg PO DAILY MARIELA Sodium Chloride (Normal Saline) 1,000 mls @ 75 mls/hr IV ASDIRECTED MARIELA Metoprolol Tartrate (Lopressor) 75 mg PO BID MARIELA Morphine Sulfate (Morphine) 2 mg IVPUSH Q2H PRN PRN Reason: Pain (severe 7-10) Stop: 11/06/16 17:27 Ondansetron HCl (Zofran Odt) 4 mg PO Q6H PRN PRN Reason: nausea, able to take PO Oxycodone HCl (Oxycodone) 5 mg PO Q4H PRN PRN Reason: Pain (moderate 4-6) Sodium Chloride (Saline Flush) 10 ml FLUSH ASDIRECTED PRN PRN Reason: Keep Vein Open Sodium Chloride (Saline Flush) 2.5 ml FLUSH ASDIRECTED PRN PRN Reason: Keep Vein Open Temazepam (Restoril) 15 mg PO BEDTIME PRN PRN Reason: Sleep Discontinued Medications Furosemide (Lasix) 20 mg IVPUSH NOW ONE Stop: 11/05/16 16:04 Last Admin: 11/05/16 16:09 Dose: 20 mg Lidocaine/Epinephrine (Xylocaine 1% With Epinephrine 1:100,000) 20 ml INJECT ONETIME ONE Stop: 11/05/16 19:27 Morphine Sulfate (Morphine) 1 - 10 mg IVPUSH ONETIME ONE Stop: 11/05/16 19:19 Morphine Sulfate (Morphine) Confirm Administered Dose 10 mg .ROUTE .STK-MED ONE Stop: 11/05/16 19:22 EKG INTERPRETATION Rhythm: a-fib *Q Meaningful Use (DIS) - VTE *Q VTE Criteria *Q: VTE Mechanical Contraindications *Q: At Risk for Falls VTE Pharmacological Contraindications *Q: Tx/Proc Refused by Pt VTE Anticoagulation Contraindications: Tx/proc refused by pt - Stroke *Q Stroke Criteria *Q: - AMI *Q AMI Criteria *Q:
[2016-11-05 23:03] VITALS: BP 99/54
[2016-11-06] MEDS ORDERED: Furosemide 20 MG Tab PO SCH (09:00)
--- NOTE | 2016-11-06 15:01 | CR ---
EXAM DATE: 11/05/16 PATIENT'S AGE: 86 Patient: BRYAN FISHER Facility: [place], [place] Site . Site : 1930 Study: XRay Chest [id number]/4/2017 3:47:49 PM Ordering Physician: Doctor Sepulveda Final Report: INDICATION: pain, sob, started today Indication: Pain, shortness of breath. Technique: Chest, two views. Comparison: 11/02/2016. Findings: There is near complete opacification of the right hemithorax, which has developed since previous. Small left pleural effusion. Silhouetting of the hemidiaphragms and both heart borders. No pneumothorax. Central airway is normal. Osseous structures are intact. Impression: 1. Near complete opacification of the right hemithorax. 2. This may represent an interval increase in the patient`s right pleural effusion. Pneumonia or resorptive atelectasis are additional considerations. 3. Stable, small left pleural effusion. Dictated by Leonardo Pretty MD @ 11/05/2016 4:04:19 PM Dictated by: Leonardo Pretty MD @ 11/05/2016 16:04:31 (Electronic Signature) Report Signed by Proxy. RAGHAV
--- NOTE | 2016-11-06 15:25 | CT ---
EXAM DATE: 11/05/16 PATIENT'S AGE: 86 Patient: BRYAN FISHER Facility: [place], [place] Site . Site : 1930 Study: CT Chest [id number]/4/[id number] 6:52:49 PM Ordering Physician: Barbie Reyes Final Report: INDICATION: follow up. pain started today. L leg swelling HISTORY: Chest pain. Abnormal chest x-ray. COMPARISON: Chest, 2 views 11/05/2016. TECHNIQUE: CT of the chest. No intravenous contrast. Coronal/sagittal reconstruction images. FINDINGS: Large, bilateral pleural effusions, right larger than left. These are non loculated. There is no pericardial effusion. There is cardiomegaly. Coronary artery calcifications. Mild dilation of the ascending thoracic aorta. Normal caliber main pulmonary artery. The lung windows demonstrate debris within the mainstem bronchi, with resorptive atelectasis in the right lung. There is no honeycomb formation. There is a trivial left-sided pneumothorax. This is best seen on series 402, image 80. There is a small left apical component on image 22 , series 402. Evaluation of the upper abdomen demonstrates a normal appearance of the included segments of the spleen, adrenal glands, liver. No upper abdominal lymphadenopathy. The bone windows demonstrate osteophytic spurring throughout the endplates of the thoracic spine. There are fusion changes in the lower cervical spine. On sagittal reconstruction images, there are questionable syndesmophytes, which are suggestive of ankylosing spondylitis. IMPRESSION: 1. Large, bilateral pleural effusions, with a small pneumothorax component on the left. No shift of mediastinal structures. 2. Debris in both mainstem bronchi, with resorptive atelectasis in the right lung. This partially accounts for the findings on recent chest x-ray. Pulmonary consultation is suggested, and bronchoscopy may be obtained to exclude an underlying endobronchial mass. 3. Dr. Valentin was paged with the above results, 11/05/16, 1930 hours. Report will be given once the call is returned. Dictated by Leonardo Pretty MD @ 11/05/2016 7:31:00 PM Dictated by: Leonardo Pretty MD @ 11/05/2016 19:31:08 (Electronic Signature) Report Signed by Proxy. RAGHAV
--- NOTE | 2016-11-06 15:26 | CR ---
EXAM DATE: 11/05/16 PATIENT'S AGE: 86 Patient: BRYAN FISHER Facility: [place], [place] Site . Site : 1930 Study: XRay Chest Decub [id number]/4/2017 7:00:47 PM Ordering Physician: Barbie Reyes Final Report: INDICATION: to see air fluid levels. HISTORY: Evaluate pleural effusion. COMPARISON: Chest, 2 views 11/05/2016. CT chest 11/05/2016. TECHNIQUE: Right-sided decubitus radiograph the chest. FINDINGS: There is a small left hydropneumothorax, which is also demonstrated on recent CT scan of the chest. Large right pleural effusion, with resorptive atelectasis. Osseous structures are intact. IMPRESSION: 1. Small left-sided pneumothorax. 2. Large right pleural effusion. This does not appear loculated on recent CT scan. 3. Report called to Dr. Castro, referring clinical service, 11/05/16, 1935 hours. Dictated by Leonardo Pretty MD @ 11/05/2016 7:35:45 PM Dictated by: Leonardo Pretty MD @ 11/05/2016 19:36:00 (Electronic Signature) Report Signed by Proxy. [facility] [place] DIVISIONSasha
--- NOTE | 2016-11-07 10:41 | CONS ---
DATE OF CONSULTATION: 11/05/2016 DATE OF : 1930 PRIMARY CARE PHYSICIAN: Jake Barker Consult was called. The patient was seen shortly after. CONCERNING QUESTION: Request for thoracentesis because of pleural effusion. HISTORY OF PRESENT ILLNESS: The patient is an 86-year-old gentleman, seen in the emergency room for deconditioning and also short of breath of 10 days. The patient had a history of pleural effusion and had thoracentesis 5 times and last time was done by Radiology under guidance. ER workup shows the right lung is completely white out and the patient was admitted to ICU and Surgery was consulted for urgent thoracentesis. Currently, the patient denied any change in breathing status. The patient's breathing is terrible, however, this has been going on for about 7 to 10 days. Denied any acute change. Denied any chest pain. Denied any syncope episode. The patient has history of COPD on home oxygen 2 L for a while and has recurrent thoracentesis 5 times in the last 12 months. Also, the patient has history of atrial fibrillation, hypertension, and valvular heart disease. The patient also has [place]. PAST SURGICAL HISTORY: As noted above. ALLERGIES: Please refer to nursing for details. MEDICATIONS: Please refer to nursing for details. PHYSICAL EXAMINATION: GENERAL: Cachectic appearance, frail, elderly gentleman, in no acute distress. HEENT: Normocephalic and atraumatic. Sclerae anicteric. LUNGS: Diminished breath sounds on the left side. No breath sounds on the right side. NECK: No crepitus. Trachea is midline. ABDOMEN: Soft. LABORATORY DATA: White count is 9. H and H are 14 and 42. Creatinine is 1.0. Chest x-ray with trachea deviated to the right side and with the hemidiaphragm go all the way to the nipple and does not seem to have pneumothorax on the left side. IMPRESSION: Complete white out of the right side in 86 years old with BNP of 1300 and with elevated right hemidiaphragm deviation to the right side of the trachea. The patient likely have a lung collapse rather than pleural effusion. I doubt I will be able to get any fluid out from the thoracentesis. At the same time, the patient is setting O2 saturation at 92 to 96 and the patient if clinically indicated probably will benefit to have the thoracentesis done under guidance, but will get a CAT scan for us and the lung was collapsed. The patient probably will need to be transferred out to get a bronchoscopy or in the urgency of tie out and will need intubation and on ventilator eventually, that has been communicated to them. Await for CAT scan results. ROMULO / ASHLEY /[id number]
== END 2016-11-05 20:58 | DRG 189 ==
LOC: MW.ED 15:01 → MW.ICU 17:12
PROVIDERS: ADMIT Internal Medicine; ATTEND Internal Medicine
DX: J96.00 Acute respiratory failure, unspecified whether with hypoxia or hypercapnia (principal); J98.11 Atelectasis; J93.9 Pneumothorax, unspecified; I48.91 Unspecified atrial fibrillation; I10 Essential (primary) hypertension; I25.2 Old myocardial infarction; J44.9 Chronic obstructive pulmonary disease, unspecified; F40.240 Claustrophobia; Z79.899 Other long term (current) drug therapy; Z99.81 Dependence on supplemental oxygen; Z88.8 Allergy status to other drugs, medicaments and biological substances; Z66 Do not resuscitate
CPT/HCPCS: 36415; 36600; 71020; 80053; 82803; 83880; 85025; 93005; 99285; J1940; 71035; 71035-26; 71250; 71250-26